=== PATIENT | female | born 1930 | race Caucasian/White ===

== ENCOUNTER 2016-11-07 07:32 | Inpatient (IN) | payer MEDICARE, OTHER ==
[~2016-11-07] VITALS: Ht 162.6 cm; Wt 64.0 kg
--- NOTE | ~2016-11-07 | OR ---
ADMIT: 11/07/2016 RM/LOC: 532 [facility] MR#: [id number] [facility]#: [id number] [address] [facility] [address] [place], [place] [address] ANTONI JAVIER [address] [place] [address] Operative/Delivery Room Report SEX: F AGE: 86 : 1930 SURGERY DATE: 11/07/2016 SURGEON: Travis Nuñez MD PREOPERATIVE DIAGNOSIS: Cecal cancer. POSTOPERATIVE DIAGNOSIS: Cecal cancer. FINAL PATHOLOGY: Pending. PROCEDURE: Laparoscopic converted to open right hemicolectomy as well as lysis of significant amount of adhesions from previous pelvic surgery was reason to convert to open. ASSEMBLER FILTERS: Shaheed Covington MD. ANESTHESIA: General endotracheal tube anesthesia. ESTIMATED BLOOD LOSS: Less than 100 mL. INDICATION FOR PROCEDURE: Please see H and P. DESCRIPTION OF PROCEDURE: After the risks, benefits, possible complications, and the alternatives have been explained, and informed consent had been obtained, the patient was taken back to the operating room, underwent general endotracheal tube anesthesia, and the surgical field was prepped and draped in a sterile manner. A supraumbilical incision was made. The Veress needle was inserted. The abdomen was insufflated with CO2. Once there was adequate insufflation, a 5-mm port was placed. I then placed a lower midline 5-mm port, an upper 5-mm port, and a 12-mm left-sided port and there were a few adhesions that I could work around. You could tell this large mass in the cecum. I was able to identify the ileocolic vessel and take it with a 2.5 load of the MIS stapler. Came up above, was dissecting out nicely the hepatic flexure and then down to the cecum. Then coming from below, I was able to get the cecum and everything all freed up, but the problem was the small bowel and there were just too many adhesions. I ended up and we spent a fair amount of time trying to get these adhesions freed up laparoscopically, but just too many adhesions of small bowel into the pelvis that at this point, I felt we needed it freed up and so I went ahead and made a bigger incision. Removed the port, shut the gas, and camera off and made a midline incision from above the umbilicus below and then spent a fair amount of time and it added a good 40 minutes to the case, 45 minutes of the case lysing adhesions and getting the small bowel all up and out of the pelvis. I chose an area in the small ADMIT: 11/07/2016 RM/LOC: 532 [facility] MR#: [id number] [address] [address] ANTONI JAVIER [address] [place] [address] Operative/Delivery Room Report SEX: F AGE: 86 : 1930 bowel, clamped, divided, and ligated some mesentery, divided with a MIS stapler as well in the transverse colon, picked an area and divided it as well. The specimen was removed. We created a [id number] stapled anastomosis using the MIS stapler and closed it off in a similar manner with a MIS stapler. Reinforced the crotch of the anastomosis with 3-0 GI silks in the corners of the bowel with 3-0 GI silks. Irrigated out the abdomen and inspected things, everything appeared dry. I had run the small bowel, it all appeared okay. Placed some Seprafilm in the pelvis and then the rest the bowel into the abdomen. Closed with a running #1 PDS superiorly and inferiorly, tying in the middle and april for skin. Once that was done, the procedure was terminated. Things were bandaged. She was extubated and taken to recovery room in stable and satisfactory condition. Travis Nuñez MD/ magali JOB #: [id number] CC: Travis Nuñez, Attending Physician Romelia Stallworth, Family Physician
[2016-11-13] MEDS ORDERED: B COMPLEX1 EACH PO (13:42)
[2016-11-13] MEDS ORDERED: VITAMIN D31000 UNIT PO (13:42)
[2016-11-13] MEDS ORDERED: TENORMIN-DPS25 MG PO (13:42)
[2016-11-13] MEDS ORDERED: ATIVAN-DPS1 MG PO (13:42)
[2016-11-13] MEDS ORDERED: CALCIUM600 MG PO (13:43)
[2016-11-13] MEDS ORDERED: PRESERVISION A1 EAC1 PO (13:43)
[2016-11-13] MEDS ORDERED: FISH OIL 1,2001 EAC2 PO (13:43)
[2016-11-13] MEDS ORDERED: VITAMIN E400 UNIT PO (13:43)
[2016-11-13] MEDS ORDERED: COLACE-DPS100 MG PO (13:44)
[2016-11-13] MEDS ORDERED: HYDROCODON-ACE1 EAC4 PO (13:44)
--- NOTE | 2016-11-29 11:47 | DS ---
ADMIT: 11/07/2016 RM/LOC: 532 [facility] MR#: [id number] [address] [address] ANTONI JAVIER [address] [facility] [place] [address] Discharge Summary SEX: F AGE: 86 : 1930 ADMISSION DATE: 11/07/2016 DISCHARGE DATE: 11/12/2016 ADMITTING DIAGNOSIS: Cecal cancer. DISMISSAL DIAGNOSES: 1. 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 2. Edematous small polyp of the ascending colon. 3. 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 4. Hypertension. 5. Stent placement. 6. Cataract surgery. 7. Tonsillectomy. 8. Back surgery. PROCEDURES: 1. Laparoscopic converted to open right hemicolectomy. 2. Lysis of adhesions. HOSPITAL COURSE: The patient was an inpatient admit with routine med surg orders. After surgery, the patient transferred to the floor without any complications. She was started on sips of clears and was given a morphine ELECTION SUPERVISOR for pain control. Overall, the patient recovered well while in the hospital. Her pain was controlled and she had normal return of her bowel function. She was transitioned off IV pain medications and was tolerating oral pain medicine. She was not nauseous. Entereg was discontinued while in the hospital. She was up ambulating well. Her vitals were stable and lab work began to normalize. She was able to discharge to home on 11/12/2016. DISCHARGE INSTRUCTIONS: 1. Okay to shower. 2. Follow up with Dr. Nuñez in [place] November 20. ADMIT: 11/07/2016 RM/LOC: 532 [facility] MR#: [id number] [address] [address] ANTONI JAVIER [address] [place] [address] Discharge Summary SEX: F AGE: 86 : 1930 DISCHARGE MEDICATION LIST: 1. Lorazepam 1 mg at bedtime. 2. Atenolol 25 mg daily. 3. Vitamin D3 1000 units daily. 4. Vitamin B complex daily. 5. Calcium 600 mg daily. 6. Vitamin E 400 units daily. 7. Fish oil 1200 mg p.o. daily. 8. PreserVision b.i.d. 9. Colace 100 mg b.i.d. p.r.n. 10.Hydrocodone/acetaminophen 5/325, 1-2 tabs q.4-6 hours p.r.n. MATTHEW Vargas / Travis Nuñez MD / njv JOB #: [id number] CC: Travis Nuñez MD, Attending Physician Romelia Stallworth MD, Family Physician
== END 2016-11-12 11:50 | disposition home health service (06) | DRG 331 ==
LOC: 5MS 07:32 → WOR 07:32 → 5MS 12:40
PROVIDERS: ADMIT Surgery
DX: C18.0 Malignant neoplasm of cecum (principal); I10 Essential (primary) hypertension; D12.2 Benign neoplasm of ascending colon; I25.2 Old myocardial infarction; M19.90 Unspecified osteoarthritis, unspecified site; K66.0 Peritoneal adhesions (postprocedural) (postinfection); Z53.31 Laparoscopic surgical procedure converted to open procedure; Z87.891 Personal history of nicotine dependence